=== PATIENT | male | born 1980 | race Caucasian/White ===

== ENCOUNTER 2020-07-05 18:18 | Emergency (ER) | payer OTHER ==
[~2020-07-05] VITALS: Ht 172.7 cm; Wt 99.7 kg
[2020-07-05] MEDS ORDERED: LUNE2TAB23 PO (18:28)
[2020-07-05] MEDS ORDERED: PROAAER10 INH (18:28)
[2020-07-05] MEDS ORDERED: PSEU120T3 PO (18:28)
[2020-07-05] MEDS ORDERED: SING10TA32 PO (18:28)
[2020-07-05] MEDS ORDERED: ADV250INH INH (18:28)
[2020-07-05] MEDS ORDERED: CATA0.1T PO (18:28)
[2020-07-05] MEDS ORDERED: ZOLO50TA PO (18:28)
[2020-07-05] MEDS ORDERED: ZYRTTAB8 PO (18:28)
[2020-07-05] MEDS ORDERED: WELLTAB38 PO (18:28)
[2020-07-05] MEDS ORDERED: IBUPROFEN 600MG TAB PO ONE (18:45)
--- NOTE | 2020-07-05 19:01 | REPVR ---
PROCEDURE INFORMATION: Exam: CT Lumbar Spine Without Contrast Exam date and time: 07/05/2020 6:51 PM Age: 40 years old Clinical indication: Injury or trauma; Fall; Blunt trauma (contusions or hematomas) TECHNIQUE: Imaging protocol: Computed tomography images of the lumbar spine without contrast. Radiation optimization: All CT scans at this facility use at least one of these dose optimization techniques: automated exposure control; mA and/or kV adjustment per patient size (includes targeted exams where dose is matched to clinical indication); or iterative reconstruction. COMPARISON: No relevant prior studies available. FINDINGS: Vertebrae: Vertebral body height and AP alignment is preserved. Multilevel Schmorl's node formation. Minimal prevertebral osteophytosis. No acute fracture. No osseous destruction. Discs/Spinal canal/Neural foramina: No definite significant central canal stenosis within limitations of technique. Mediastinum: There are calcified granulomas involving the spleen. Soft tissues: See "Vertebrae" finding. IMPRESSION: No acute lumbar spine fracture. Electronically signed by: Agusto Dixon On 07/05/2020 19:02:12 PM
--- NOTE | 2020-07-05 19:16 | REP ---
INDICATION: fall COMPARISON: None. TECHNIQUE: AP, lateral, bilateral oblique views right and left foot. FINDINGS: The osseous structures and joint spaces are intact and normal. There is no evidence for acute fracture or dislocation. Surrounding soft tissues are unremarkable. No subcutaneous emphysema or radiodense foreign body. IMPRESSION: No evidence for fracture or dislocation involving the right or left foot. Soft tissue injury along the posterior aspect of the right foot cannot be excluded. <Electronically signed by Aaron Woods > 07/05/201911
--- NOTE | 2020-07-05 19:17 | REP ---
INDICATION: fall COMPARISON: None. TECHNIQUE: AP and lateral views of the right and left tibia/fibula. FINDINGS: The osseous structures and joint spaces are intact and normal. There is no evidence for acute fracture or dislocation. Surrounding soft tissues are unremarkable. No subcutaneous emphysema or radiodense foreign body. IMPRESSION: No acute fracture or dislocation of the right or left tibia/fibula. <Electronically signed by Aaron Woods > 07/05/201913
[2020-07-05] MEDS ORDERED: IBUP-1022 PO (19:35)
[2020-07-05 20:07] VITALS: BP 145/86
== END 2020-07-05 20:11 | disposition home or self-care (01) ==
LOC: M ED 18:18
DX: T14.8XXA Other injury of unspecified body region, initial encounter (principal); W11.XXXA Fall on and from ladder, initial encounter; Y92.099 Unspecified place in other non-institutional residence as the place of occurrence of the external cause; Y93.9 Activity, unspecified; Y99.9 Unspecified external cause status; I10 Essential (primary) hypertension; J45.909 Unspecified asthma, uncomplicated

== ENCOUNTER → 2022-12-23 | Outpatient (CLI) | payer OTHER ==
[~2022-12-23] MED LIST: ADV250INH INH; CATA0.1T PO; IBUP-1022 PO; LUNE2TAB23 PO; MONT-5 PO; PROAAER10 INH; PSEU120T3 PO; WELLTAB38 PO; ZOLO50TA PO; ZYRTTAB8 PO
== END ==
LOC: M PLAIMG 06:50
PROVIDERS: ATTEND Internal Medicine
DX: M51.16 Intervertebral disc disorders with radiculopathy, lumbar region (principal)

== ENCOUNTER → 2023-09-28 | Outpatient (CLI) | payer OTHER ==
[~2023-09-28] MED LIST changes: -LUNE2TAB23 PO; +LUNE2TAB28 PO
== END ==
LOC: M WUC 10:08
PROVIDERS: ATTEND Physician Assistant
DX: Z85.47 Personal history of malignant neoplasm of testis (principal)

== ENCOUNTER → 2024-01-26 | Outpatient (REF) | payer OTHER ==
[2024-01-26 11:31] LABS: FOLLICLE STIMULATING HORMONE 5.2 mIU/ML (1.4-18.1); LUTEINIZING HORMONE 4.3 mIU/ML (1.5-9.3)
== END ==
LOC: M LABWUC 10:20
PROVIDERS: ATTEND Physician Assistant
DX: N52.9 Male erectile dysfunction, unspecified (principal)